=== PATIENT | male | born 1950 | race Caucasian/White ===

== ENCOUNTER 2022-08-25 03:34 | Outpatient (CLI) | payer MEDICARE, BC, SELFPAY | END 2022-08-25 03:35 | disposition home or self-care (01) | LOC: AMB 09-07 16:50 | PROVIDERS: PCP Internal Medicine; Visit Provider Family Medicine | DX: R06.09 Other forms of dyspnea (principal) | CPT/HCPCS: A0425; A0427 ==

== ENCOUNTER 2022-11-08 06:12 | Outpatient (CLI) | payer MEDICARE, BC, SELFPAY | END 2022-11-08 06:13 | disposition home or self-care (01) | LOC: AMB 09:52 | PROVIDERS: PCP Internal Medicine; Visit Provider Family Medicine | DX: R53.1 Weakness (principal) | CPT/HCPCS: A0998 ==

== ENCOUNTER 2022-11-14 01:02 | Outpatient (CLI) | payer MEDICARE, BC, SELFPAY | END 2022-11-14 01:03 | disposition home or self-care (01) | LOC: AMB 11:16 | PROVIDERS: PCP Internal Medicine; Visit Provider Family Medicine | DX: R41.82 Altered mental status, unspecified (principal) | CPT/HCPCS: A0425; A0429 ==